=== PATIENT | female | born 1985 | race Caucasian/White ===

== ENCOUNTER 2022-05-18 00:43 | Emergency (ER) | payer OTHER ==
[~2022-05-18] VITALS: Ht 165.1 cm; Wt 55.0 kg
[2022-05-18 01:15] VITALS: BP 115/75
[2022-05-18] MEDS ORDERED: acetaminophen 325mg tablet PO ONE (01:55)
[2022-05-18] MEDS ORDERED: TETanus/Pertussis (Acell)/Diphther VAC/PF (Tdap-Adult) 0.5ml syringe IMVAC ONE (01:55)
[2022-05-18] MEDS ORDERED: LIDOcaine 1% 30ml preserv. free vial SQ STA (01:55)
[2022-05-18] MEDS ORDERED: bacitracin 15gm ointment TP ONE (03:20)
== END 2022-05-18 03:48 | disposition home or self-care (01) ==
LOC: ER 00:44
DX: S61.213A Laceration without foreign body of left middle finger without damage to nail, initial encounter (principal); T71.9XXA Asphyxiation due to unspecified cause, initial encounter; Y93.89 Activity, other specified; Y92.89 Other specified places as the place of occurrence of the external cause; Y99.8 Other external cause status
CPT/HCPCS: 12004; 73130; 90471; 90715; 99283; J3490; J7030; A6258; A6449